=== PATIENT | male | born 1960 | race African-American/Black ===

== ENCOUNTER 2020-03-17 17:15 | Inpatient (IN) | payer MEDICARE ==
[2020-03-17 17:53] VITALS: BMI 22.0
[2020-03-17] MEDS ORDERED: Acetaminophen 325 MG TAB PO PRN (18:23)
[2020-03-17] MEDS: traMADol HCl 50 MG TAB PO PRN (19:44)
[2020-03-17] MEDS: Heparin 5,000 UNITS/ML VIAL SC SCH (20:32)
[2020-03-17] MEDS ORDERED: Heparin 5,000 UNITS/ML VIAL SC SCH (21:00)
[2020-03-18] MEDS: Acetaminophen 325 MG TAB PO PRN (02:09)
--- NOTE | 2020-03-18 05:06 | HP ---
CHIEF COMPLAINT: Weakness following hospitalization and surgery. HISTORY OF PRESENT ILLNESS: The patient is a 60-year-old Theo male who has a history of cirrhosis, alcohol abuse, chronic kidney disease. The patient was independent of his ADLs prior to these recent hospitalizations. The patient had developed problems with nausea, vomiting, abdominal distention, and weight loss. He had stopped drinking about 4 weeks prior to his recent hospitalization. He ended up hospitalized at [facility] from approximately 02/23 until 02/28/2020 with a possible bowel obstruction that was initially treated conservatively with nasogastric tube. This was removed and he wanted to go home. After he went home, his symptoms recurred and he subsequently was admitted at [facility] on 02/24/20 because of nausea, vomiting, and abdominal distention. He was seen in consultation by Dr. Benny Stroud, general surgeon, and review of his CT scan showed finding consistent with a small-bowel obstruction that was complete. The patient was admitted and underwent a laparoscopic lysis of adhesions, umbilical hernia repair without mesh, and placement of an internal jugular on the left side. Postop, the patient required ventilatory support and apparently had some trouble with some alcoholic withdrawal symptoms. He later developed sepsis symptoms and CT scan suggesting pneumatosis intestinalis of the transverse colon and ascites present. He was taken back to surgery by Dr. Stroud on 03/08/2020 and underwent exploratory laparotomy and appendectomy because of an indurated appendix. There was ascites fluid present that was evacuated and sent for culture. The bowel was all intact. The patient was seen by Infectious Disease and placed on antibiotics for peritonitis. His blood cultures had no growth. The ascites fluid grew an Enterobacter cloacae, Enterococcus faecalis. The patient required TPN support. The acute kidney injury resolved. He was later able to be extubated. His postop course was complicated by an ileus with gradual resolution. He was left extremely weak and was not able to walk. There was consideration of discharging him home to hospice, but he was too weak for his family even try to take care of him at home under hospice. The patient was wanting to try to see if he could get stronger before going home. The patient was discharged to [facility] on 03/17/2020 for purpose of physical therapy and occupational therapy. The patient was not receiving any TPN at this point nor IV antibiotics and was getting Tylenol for pain. He said he was just very weak and he wants to try to get stronger. When asked about hospice, he said he really does not think he is ready for this, wants to see how he does. PAST MEDICAL HISTORY: History of cirrhosis from alcohol. The patient previously had umbilical hernia repair with mesh in the past, left inguinal hernia repair, and laparoscopic cholecystectomy. He previously had viral studies for hepatitis A, B, and C, which have been normal. He has had paracentesis in the past, 3 times this year for the ascites. PRESENT MEDICATIONS: 1. Spironolactone 25 mg daily. 2. Acetaminophen 325 mg two every 8 hours as needed. 3. Tramadol 50 mg b.i.d. p.r.n. 4. Folic acid 1 mg daily. 5. Thiamine 100 mg daily. 6. Atenolol 25 mg daily. 7. Furosemide 40 mg daily. 8. Heparin 5000 units subcu b.i.d. 9. DuoNeb by nebulizer every 4 hours p.r.n. 10. Lactulose 20 g p.o. daily. 11. Omeprazole 20 mg daily. ALLERGIES: NO KNOWN ALLERGIES. REVIEW OF SYSTEMS: CONSTITUTIONAL: The patient said he is feeling better, but just very weak and has really not been able to get up and walk, but has been up in a chair some. The patient does not think he has had any fever. The patient recently has lost weight, but he does not know how much. EYE, EAR, NOSE, AND THROAT: No complaints. The patient is on no added salt diet. PULMONARY: No shortness of breath. The patient says he does smoke, but has not since he has been in the hospital. CARDIOVASCULAR: No chest pain. GASTROINTESTINAL: The patient has had no more nausea or vomiting. He is having several bowel movements a day. Today, upon his arrival, had a large yellowish liquid stool. The patient said his stomach does not hurt. GENITOURINARY: No complaints. DERMATOLOGIC: The patient said he has some bruised areas, little swelled areas from IV sites. NEUROPSYCHIATRIC: The patient just said he has generalized weakness. Nonfocal. ADLs: Prior to the hospitalization here and at [facility] and [facility], he had been independent in his ADLs. HABITS: Patient smokes less than a pack a day, but has stopped since his hospitalization. Alcohol, long history of alcoholism. Has been off the alcohol now for at least he said for about 4 weeks. SOCIAL HISTORY: The patient is , lives at [facility] with his . CODE STATUS: Patient is a DNR. Patient says he never again wants to be intubated nor have a nasogastric tube. PHYSICAL EXAMINATION: GENERAL: Shows an asthenic built 60-year-old Theo male who is lying in bed. He is alert and talkative and appears comfortable. Nurses are just cleaning him up from a large yellowish liquid bowel movement. VITAL SIGNS: Patient's weight is 158.8, heart rate 99, blood pressure 120/75, O2 saturation on room air 100%, temperature 98.8. HEENT: Head is normocephalic. Male pattern baldness. Ears, TMs are clear. Eyes, pupils are equal, round, and reactive. Sclerae look icteric. Nose normal. Mouth and throat, patient is edentulous. NECK: Carotids are equal and strong. No bruits. Thyroid not enlarged. LUNGS: Clear. HEART: Regular rate. No murmurs. ABDOMEN: Mildly protuberant. There is a midline vertical incision with phuong out and steri strips present. There is no drainage. Bowel sounds are present. There are shifting areas of dullness and some fluid waves that can be felt. Abdomen was nontender. EXTREMITIES: The patient has some bruising on the right forearm and slight pink discoloration. There is some swelling around the right elbow. Lower extremities have no edema. NEUROLOGIC: The patient is alert, knows he is in [place] and could tell me about his recent hospitalization. He has severe generalized weakness, but this is nonfocal. IMPRESSION: 1. Severe generalized weakness and deconditioning. a. Following hospitalization with bowel obstruction requiring surgery. b. Hospitalized at [facility] from 03/03 until 03/17. c. Required surgery on 03/03 with lysis of adhesion. d. On 03/08, take back exploratory laparotomy for sepsis from peritonitis, no bowel injury found. Peritoneal fluid culture was positive for Enterobacter cloacae and Enterococcus faecalis. 2. Alcoholism with alcoholic withdrawal. a. Cirrhosis. b. Postop complicated also by ileus, is resolving. 3. Alcoholism. a. According to patient, he has been off the alcohol for at least 4 weeks. 4. Alcoholic cirrhosis. 5. Malnutrition. 6. Chronic kidney disease. 7. DNR status. PLAN: The patient has been admitted to [facility]. He is wanting to try to get stronger with therapy. He is too weak to be cared for at home. He is a DNR. There was a discussion about him possibly going under hospice, but he says he is just not ready for this and wants to see if he can get stronger first. We will continue his routine medication and DVT prophylaxis. He is presently on no antibiotics. Code status is DNR. See orders. Job ID: [id number] MTDD
[2020-03-18 05:18] LABS: #Basophils 0.1 thou/uL (0.0-0.2); #Eosinphils 0.1 thou/uL (0.0-0.7); #Lymphocytes 1.5 thou/uL (1.20-3.40); #Monocytes 1.1 thou/uL (0.11-0.59); #Neutrophils 5.5 thou/uL (1.40-6.50); %Basophils 0.9 % (0.0-1.0); %Eosinophils 0.8 % (0.0-10.0); %Lymphocytes 17.8 % (21.0-51.0); %Monocytes 13.4 % (0.0-10.0); %Neutrophils 67.1 % (42.0-75.0); Hemoglobin 8.9 g/dL (14.0-18.0); Mean Corpuscular HGB CONC 31.5 g/dL (32.0-36.0); Mean Corpuscular Hemoglobin 29.2 pg (27.0-31.0); Mean Corpuscular Volume 92.9 fL (78.0-98.0); Mean Platelet Volume 10.4 fL (7.4-10.4); Platelet Count 145 thou/uL (130-400); RBC Distribution Width 16.5 % (11.5-14.5); Red Blood Cell (RBC) Count 3.03 mill/uL (4.70-6.10); White Blood Cell (WBC) Count 8.2 thou/uL (4.8-10.8)
[2020-03-18 05:25] LABS: Prothrombin Time 22.5 sec (12.0-14.7)
[2020-03-18 05:35] LABS: ALT (SGPT) 58 U/L (8-55); AST (SGOT) 143 U/L (5-34); Albumin 1.8 g/dL (3.4-4.8); Alkaline Phosphatase 197 U/L (40-110); Anion Gap 14 mmol/L (10-20); BUN (Urea Nitrogen) 12 mg/dL (8.4-25.7); Bilirubin, Total 4.2 mg/dL (0.2-1.2); Calc. Creatinine Clearance 127 mL/min (70-130); Calcium 7.5 mg/dL (7.8-10.44); Carbon Dioxide 19 mmol/L (23-31); Chloride 106 mmol/L (98-107); Estimated GFR-MDRD Greater than 90; Globulin 4.7 g/dL (2.4-3.5); Glucose 82 mg/dL (80-115); Potassium 3.1 mmol/L (3.5-5.1); Protein, Total 6.5 g/dL (5.8-8.1); Sodium 136 mmol/L (136-145)
[2020-03-18] MEDS: Folic Acid 1 MG TAB PO SCH (09:28)
[2020-03-18] MEDS: Thiamine 100 MG TAB PO SCH (09:28)
[2020-03-18] MEDS: Heparin 5,000 UNITS/ML VIAL SC SCH ×2 (09:28→21:14)
[2020-03-18] MEDS: Spironolactone 25 MG TAB PO SCH (09:28)
[2020-03-18] MEDS: Atenolol 25 MG TAB PO SCH (09:28)
[2020-03-18] MEDS: Furosemide 40 MG TAB PO SCH (09:29)
--- NOTE | 2020-03-18 10:23 | PRG ---
DATE OF SERVICE: 03/18/2020 SUBJECTIVE: The patient said he is doing good this morning. He slept good. He has already been around physical therapy, walked a little ways and worked with a little exercise machine for his arms. He is ready now for breakfast. He had multiple watery stools through the night. He still is on lactulose, which we will switch to p.r.n. OBJECTIVE: GENERAL: The patient is alert, looks very comfortable, he is talkative and answers questions appropriately. VITAL SIGNS: Show a temperature of 98.6, pulse 93, respirations 18, O2 saturation 100% on room air, blood pressure 109/72. LUNGS: Clear. HEART: Regular rate. ABDOMEN: Mildly protuberant. Bowel sounds present. Incision healing well with Steri-Strips present. EXTREMITIES: No edema. LABORATORY DATA: Shows an H and H of 8.9 and 28.2, white cell count 8200, 67% segs, 18% lymphocytes, platelet count of 145,000. PT 22.5, INR 2.0. Sodium 136, potassium 3.1, glucose 82, GFR greater than 90. AST 143, ALT 58, alkaline phos 197, bilirubin 4.2, albumin 1.8. ASSESSMENT: 1. Generalized weakness and deconditioning. a. Following hospitalization with bowel obstruction, requiring surgery. 2. Hospitalized at [facility] from 03/03 until 03/17 with a small-bowel obstruction. a. Required laparoscopic abdominal surgery on 03/03 with a lysis of adhesions. b. On 03/08, required a take back surgery for exploratory laparotomy for sepsis from peritonitis. No bowel injury found. Peritoneal fluid culture was positive for Enterobacter cloacae and Enterococcus faecalis that were treated with antibiotics. 3. Alcoholism with alcohol withdrawal. a. Remains off alcohol. b. Alcoholic withdrawal symptoms, resolved. 4. Alcoholic cirrhosis. 5. Malnutrition. 6. Code status, DNR. PLAN: The patient is doing better today. Does have hypokalemia for which he has been placed on potassium supplementation. He is anemic from his chronic illness and the recent surgeries, this will be followed. His liver studies are abnormal as a result of the cirrhosis. We will recheck the lab in a few days. Continue PT and OT. We will switch his lactulose to p.r.n. Job ID: [id number] [facility]
[2020-03-18] MEDS: Potassium Chloride 10 MEQ TAB PO SCH ×2 (10:37→17:07)
[2020-03-19] MEDS: Atenolol 25 MG TAB PO SCH (08:12)
[2020-03-19] MEDS: Furosemide 40 MG TAB PO SCH (08:12)
[2020-03-19] MEDS: Folic Acid 1 MG TAB PO SCH (08:12)
[2020-03-19] MEDS: Spironolactone 25 MG TAB PO SCH (08:12)
[2020-03-19] MEDS: Thiamine 100 MG TAB PO SCH (08:12)
[2020-03-19] MEDS: Pantoprazole 40 MG GRANULES PACKET PO SCH (08:13)
[2020-03-19] MEDS: Heparin 5,000 UNITS/ML VIAL SC SCH (08:14)
[2020-03-19] MEDS: traMADol HCl 50 MG TAB PO PRN (08:27)
--- NOTE | 2020-03-19 11:36 | PRG ---
DATE OF SERVICE: 03/19/2020 SUBJECTIVE: The patient said he is feeling good today. He says his bowels are not moving as much. He is presently in physical therapy and wheelchair, working the hand exercise device. His niece, Bernice is visiting with him. OBJECTIVE: GENERAL: The patient looks good this morning. He is sitting up in wheelchair, appears comfortable, in no distress. VITAL SIGNS: Show a temperature of 97.7, pulse 80, respirations 15, blood pressure 125/86, O2 saturation 95% on room air. His weight is 158. LUNGS: Clear. HEART: Regular rate. ABDOMEN: Soft, nontender. HEENT: Eyes are icteric. ASSESSMENT: 1. Generalized weakness and deconditioning. a. Following hospitalization with bowel obstruction requiring surgery x2. 2. Hospitalized at [facility] from 03/03/2020 until 03/17 with a small-bowel obstruction. a. Required laparoscopic abdominal surgery for lysis of adhesions on 03/03/2020. b. On 03/08, required a take back surgery for exploratory laparotomy for sepsis from peritonitis. No bowel injury found. Peritoneal fluid culture was positive for Enterobacter cloacae and Enterococcus faecalis that were treated. 3. Alcoholism with alcoholic withdrawal. a. Remains off the alcohol. b. Alcoholic withdrawal symptoms have all resolved. 4. Alcoholic cirrhosis. 5. Malnutrition. 6. Code status, DNR. PLAN: I have reviewed lab studies and the patient's liver studies are abnormal and his bilirubin is elevated to 4. I suspect there may be some alcoholic hepatitis. I anticipate this will improve with good nutrition and the vitamin supplementation. Right now, he looks better overall. We will continue good nutrition. He is on a pureed diet with nectar thickened liquids. He seems to be tolerating well. Speech Therapy will look in and help with further recommendations. He had previously had a swallow study while at [facility], which showed no rosalina aspiration, but mild penetration. Continue PT and OT. We will discontinue patient's heparin since his INR is already prolonged from his underlying liver disease. Job ID: [id number] MTDD
[2020-03-20] MEDS: Thiamine 100 MG TAB PO SCH (08:33)
[2020-03-20] MEDS: Furosemide 40 MG TAB PO SCH (08:34)
[2020-03-20] MEDS: Atenolol 25 MG TAB PO SCH (08:34)
[2020-03-20] MEDS: Spironolactone 25 MG TAB PO SCH (08:34)
[2020-03-20] MEDS: Folic Acid 1 MG TAB PO SCH (08:34)
[2020-03-20] MEDS: traMADol HCl 50 MG TAB PO PRN ×2 (08:37→20:51)
[2020-03-20] MEDS: Pantoprazole 40 MG GRANULES PACKET PO SCH (10:22)
[2020-03-21] MEDS: Furosemide 40 MG TAB PO SCH (08:31)
[2020-03-21] MEDS: Folic Acid 1 MG TAB PO SCH (08:31)
[2020-03-21] MEDS: Spironolactone 25 MG TAB PO SCH (08:31)
[2020-03-21] MEDS: Atenolol 25 MG TAB PO SCH (08:31)
[2020-03-21] MEDS: Pantoprazole 40 MG GRANULES PACKET PO SCH (08:31)
[2020-03-21] MEDS: traMADol HCl 50 MG TAB PO PRN ×2 (08:35→21:20)
[2020-03-21] MEDS: Thiamine 100 MG TAB PO SCH (08:45)
[2020-03-22 05:18] LABS: #Basophils 0.1 thou/uL (0.0-0.2); #Eosinphils 0.1 thou/uL (0.0-0.7); #Lymphocytes 1.8 thou/uL (1.20-3.40); #Monocytes 0.9 thou/uL (0.11-0.59); #Neutrophils 6.2 thou/uL (1.40-6.50); %Basophils 0.7 % (0.0-1.0); %Eosinophils 0.8 % (0.0-10.0); %Lymphocytes 19.9 % (21.0-51.0); %Monocytes 10.2 % (0.0-10.0); %Neutrophils 68.4 % (42.0-75.0); Hemoglobin 9.2 g/dL (14.0-18.0); Mean Corpuscular HGB CONC 31.4 g/dL (32.0-36.0); Mean Corpuscular Hemoglobin 29.3 pg (27.0-31.0); Mean Corpuscular Volume 93.4 fL (78.0-98.0); Mean Platelet Volume 9.3 fL (7.4-10.4); Platelet Count 259 thou/uL (130-400); RBC Distribution Width 16.2 % (11.5-14.5); Red Blood Cell (RBC) Count 3.13 mill/uL (4.70-6.10); White Blood Cell (WBC) Count 9.1 thou/uL (4.8-10.8)
[2020-03-22 05:26] LABS: INR-International Normal Ratio 1.9; Prothrombin Time 21.8 sec (12.0-14.7)
[2020-03-22 05:37] LABS: ALT (SGPT) 64 U/L (8-55); AST (SGOT) 122 U/L (5-34); Alkaline Phosphatase 253 U/L (40-110); Anion Gap 13 mmol/L (10-20); BUN (Urea Nitrogen) 7 mg/dL (8.4-25.7); Bilirubin, Total 3.8 mg/dL (0.2-1.2); Calc. Creatinine Clearance 125 mL/min (70-130); Calcium 7.4 mg/dL (7.8-10.44); Carbon Dioxide 20 mmol/L (23-31); Chloride 102 mmol/L (98-107); Estimated GFR-MDRD Greater than 90; Globulin 5.3 g/dL (2.4-3.5); Glucose 90 mg/dL (80-115); Potassium 3.3 mmol/L (3.5-5.1); Protein, Total 7.3 g/dL (5.8-8.1); Sodium 132 mmol/L (136-145)
[2020-03-22] MEDS: Furosemide 40 MG TAB PO SCH (07:54)
[2020-03-22] MEDS: Thiamine 100 MG TAB PO SCH (07:54)
[2020-03-22] MEDS: Pantoprazole 40 MG GRANULES PACKET PO SCH (07:54)
[2020-03-22] MEDS: Spironolactone 25 MG TAB PO SCH (07:54)
[2020-03-22] MEDS: Folic Acid 1 MG TAB PO SCH (07:55)
[2020-03-22] MEDS: Atenolol 25 MG TAB PO SCH (08:02)
[2020-03-22] MEDS: traMADol HCl 50 MG TAB PO PRN ×2 (10:00→22:01)
--- NOTE | 2020-03-22 11:31 | PRG ---
DATE OF SERVICE: 03/22/2020 SUBJECTIVE: The patient said he had a good night. He is feeling good today. He is eating good. His bowels are working. OBJECTIVE: GENERAL: The patient is sitting up in a chair. He is alert, talkative, appears comfortable, and in no distress. VITAL SIGNS: His temperature is 98.3, pulse 86, respirations 16, O2 saturation 100% on room air, blood pressure 99/65. LUNGS: Clear. HEART: Regular rate. ABDOMEN: Incision healing well on the abdomen. EXTREMITIES: No edema. LABORATORY DATA: Shows an H and H of 9.2 and 29.2, white cell count 9100 with 68% segs, 20% lymphocytes, and platelet count of 259,000. His PT/INR is 21.8 and 1.9. Sodium 132, potassium 3.3, BUN 7, creatinine 0.63, GFR greater than 90. His alkaline phosphatase is 253, total bilirubin has dropped from 4.2 to 3.8. His AST has dropped from 143 to 122, ALT stable at 64, albumin is up to 2.0. ASSESSMENT: 1. Generalized weakness and deconditioning. a. Following hospitalization with bowel obstruction, requiring surgery x2. 2. Hospitalized at [facility] from 03/03/2020 until 03/17/2020 with a small-bowel obstruction. a. Required laparoscopic abdominal surgery for lysis of adhesions on 03/03/2020. b. On 03/08, required a take back surgery for exploratory laparotomy for sepsis from peritonitis. No bowel injury found. Peritoneal fluid positive for Enterobacter cloacae and Enterococcus faecalis and treated with antibiotics. 3. Alcoholism. a. History of alcoholic withdrawal during hospitalization at [facility]. b. Remains off alcohol. 4. Alcoholic cirrhosis and probable alcoholic hepatitis. a. Lab studies showed mild improvement. 5. Malnutrition. 6. Code status, DNR. PLAN: The patient looks better. We will continue present care. Continue PT and OT. Job ID: [id number] [facility]
[2020-03-23] MEDS: Atenolol 25 MG TAB PO SCH (07:56)
[2020-03-23] MEDS: Thiamine 100 MG TAB PO SCH (07:56)
[2020-03-23] MEDS: Furosemide 40 MG TAB PO SCH (07:56)
[2020-03-23] MEDS: Spironolactone 25 MG TAB PO SCH (07:56)
[2020-03-23] MEDS: Folic Acid 1 MG TAB PO SCH (07:56)
[2020-03-23] MEDS: Pantoprazole 40 MG GRANULES PACKET PO SCH (07:57)
--- NOTE | 2020-03-23 09:14 | PRG ---
DATE OF SERVICE: 03/23/2020 SUBJECTIVE: The patient is feeling better. His bowels were moving this morning. His appetite has been good. His strength is improving. He is doing better with his transfers and walking. OBJECTIVE: GENERAL: The patient is sitting on the bedside commode, alert, talkative, appears comfortable. VITAL SIGNS: Temperature 97.9, pulse 88, respirations 18, O2 saturation 100% on room air, blood pressure 106/71. LUNGS: Clear. HEART: Regular rate. EXTREMITIES: No edema. ASSESSMENT: 1. Generalized weakness and deconditioning. a. Following hospitalization with bowel obstruction requiring surgery x2. 2. Hospitalized at [facility] from 03/03 through 03/17 for small-bowel obstruction. a. Required laparoscopic abdominal surgery for lysis of adhesions on 03/03/20. b. On 03/08, required a take back surgery for exploratory laparotomy for sepsis from peritonitis. No bowel injury found. Peritoneal fluid grew Enterobacter cloacae and Enterococcus faecalis and treated with antibiotics. 3. Alcoholism. a. History of alcohol withdrawal during recent hospitalization at [facility]. b. Remains off alcohol. 4. Alcoholic cirrhosis and probable recent alcoholic hepatitis. a. Improving. 5. Malnutrition. a. Eating better and albumin gradually improving. 6. Code status: DNR. PLAN: Continue present care, continue PT and OT. The patient due to see Dr. Stroud, his general surgeon and follow up on 03/25. Job ID: [id number] MTDD
[2020-03-23] MEDS: traMADol HCl 50 MG TAB PO PRN (11:14)
[2020-03-23] MEDS: Acetaminophen 325 MG TAB PO PRN (19:52)
[2020-03-24] MEDS: traMADol HCl 50 MG TAB PO PRN ×2 (08:32→20:43)
[2020-03-24] MEDS: Atenolol 25 MG TAB PO SCH (08:33)
[2020-03-24] MEDS: Thiamine 100 MG TAB PO SCH (08:33)
[2020-03-24] MEDS: Furosemide 40 MG TAB PO SCH (08:33)
[2020-03-24] MEDS: Folic Acid 1 MG TAB PO SCH (08:33)
[2020-03-24] MEDS: Spironolactone 25 MG TAB PO SCH (08:33)
[2020-03-24] MEDS: Pantoprazole 40 MG GRANULES PACKET PO SCH (08:34)
[2020-03-24] MEDS ORDERED: Loratadine 10 MG TAB PO PRN (08:41)
--- NOTE | 2020-03-24 10:53 | PRG ---
DATE OF SERVICE: 03/24/2020 SUBJECTIVE: The patient said he is feeling good today. His appetite is good. He slept good last night. He has been working with Physical Therapy, has been walking up to 150 feet a couple of times a day with a rolling walker and minimum assistance. He is transferring better with minimum assistance. The nurse said the bottom half of his abdominal incision started having a little drainage. He has had no fever. No abdominal pain. OBJECTIVE: GENERAL: The patient is sitting up in a chair, having completed his breakfast. He is alert, appears very comfortable, in no distress. VITAL SIGNS: His temperature is 98.4, pulse 84, respirations 20, O2 saturation 100% on room air, blood pressure 119/78. LUNGS: Clear. HEART: Regular rate. ABDOMEN: Incision is healing well, but over the lower half, there is a spot where there is a moderate amount of greenish, yellowish, slightly brown drainage on the dressing. In the area, two of the Steri-Strips were removed and there seems to be one spot of the drainage. There is no tenderness over this area and incision still seems to be intact. ASSESSMENT: 1. Generalized weakness and deconditioning. a. Following hospitalization with bowel obstruction requiring surgery x2. b. Improved, walking up to 150 feet with a rolling walker and minimal assistance and transferring with minimum assistance as of 03/24. 2. Hospitalized at [facility] from 02/28 to 03/17 for small bowel obstruction. a. Required laparoscopic abdominal surgery for lysis of adhesion on 03/03/2020. b. On 03/08, required a take back surgery for exploratory laparotomy for sepsis from peritonitis. No bowel injury found. Peritoneal fluid grew Enterobacter cloacae and Enterococcus faecalis, treated with antibiotic. c. Has been doing very well, but then developed a small purulent drainage from the lower portion of the incision as of the evening of 03/23. 3. Alcoholism. a. History of alcohol withdrawal during recent hospitalization at [facility]. b. Remains off alcohol. 4. Alcoholic cirrhosis and probable recent alcoholic hepatitis. a. Improving. 5. Malnutrition. a. Eating better and albumin is gradually improving. 6. Code status, DNR. PLAN: The culture of the little drainage from the wound has been taken. This area may represent a small area of stitch abscess. The area will be cleaned daily. The patient is due to see his surgeon, Dr. Stroud tomorrow, who will check that incision. Continue PT and OT. Job ID: [id number] [facility]
[2020-03-24] MEDS: Acetaminophen 325 MG TAB PO PRN (18:54)
[2020-03-25] MEDS: Thiamine 100 MG TAB PO SCH (08:02)
[2020-03-25] MEDS: Folic Acid 1 MG TAB PO SCH (08:02)
[2020-03-25] MEDS: Furosemide 40 MG TAB PO SCH (08:02)
[2020-03-25] MEDS: Atenolol 25 MG TAB PO SCH (08:02)
[2020-03-25] MEDS: Spironolactone 25 MG TAB PO SCH (08:03)
[2020-03-25] MEDS: Pantoprazole 40 MG GRANULES PACKET PO SCH (08:03)
[2020-03-25] MEDS: traMADol HCl 50 MG TAB PO PRN ×2 (08:03→19:28)
--- NOTE | 2020-03-25 11:21 | PRG ---
DATE OF SERVICE: 03/25/2020 SUBJECTIVE: Patient said he is doing better. He feels better. He rested well last night, already been to therapy. OBJECTIVE: GENERAL: The patient is sitting up in a chair. He is alert, talkative, appears comfortable, in no distress. VITAL SIGNS: His temperature is 98, pulse 98, respirations 22, O2 saturation 97% on room air, blood pressure 114/77. LUNGS: Clear. HEART: Regular rate. ABDOMEN: Incision healing well other than the small area on the lower half of the incision with just a small amount of a brown, somewhat serous fluid, but this is less than yesterday and the wound looks much globe cleaner. The culture from the wound is pending. The Gram stain shows rare WBC and no organism seen. ASSESSMENT: 1. Generalized weakness and deconditioning. a. Following hospitalization for bowel obstruction requiring surgery x2. b. Improving. Walking up to 150 feet with a rolling walker and minimal assistance. Transferring with minimal assistance as of 03/25. 2. Hospitalized at [facility] from 02/28 to 03/17 for small bowel obstruction. a. Required laparoscopic abdominal surgery for lysis of adhesions on 03/03/2020. b. On 03/08, required a take back surgery for exploratory laparotomy for sepsis from peritonitis. No bowel injury found. Peritoneal fluid grew Enterobacter cloacae and Enterococcus faecalis, treated with antibiotics. c. Has been doing very well. Developed just this small probable little stitch abscess in the lower incision that looks better today as of 03/25. 3. Alcoholism. a. History of alcoholic withdrawal during recent hospitalization. b. Remains off alcohol. 4. Alcoholic cirrhosis and probable recent alcoholic hepatitis, improving. 5. Malnutrition. a. Eating better, albumin gradually improving. 6. Code status, DNR. PLAN: Continue present care. Continue keeping the wound clean. Continue PT and OT. The patient is scheduled to see his surgeon, Dr. Willy Stroud, this morning. Job ID: [id number] [facility]
[2020-03-25] MEDS: Acetaminophen 325 MG TAB PO PRN (19:29)
[2020-03-26] MEDS: Thiamine 100 MG TAB PO SCH (08:06)
[2020-03-26] MEDS: Atenolol 25 MG TAB PO SCH (08:06)
[2020-03-26] MEDS: Folic Acid 1 MG TAB PO SCH (08:06)
[2020-03-26] MEDS: Spironolactone 25 MG TAB PO SCH (08:06)
[2020-03-26] MEDS: Furosemide 40 MG TAB PO SCH (08:07)
[2020-03-26] MEDS: Pantoprazole 40 MG GRANULES PACKET PO SCH (08:07)
[2020-03-26] MEDS: traMADol HCl 50 MG TAB PO PRN ×2 (08:12→19:28)
--- NOTE | 2020-03-26 13:29 | PRG ---
DATE OF SERVICE: 03/26/2020 SUBJECTIVE: The patient said he is feeling good today. Yesterday, his family took him to see Dr. Stroud, his surgeon. He was very pleased with his progress, found that he had a small little stitch abscess and there was a small opening there in the incision that he packed with Nu Gauze and asked that this be done daily. The patient is making good progress with physical therapy. He is walking better and stronger with his walker and getting up better. He is making excellent progress. OBJECTIVE: GENERAL: The patient is sitting up in a wheelchair. He is alert and talkative, looks very comfortable. VITAL SIGNS: Temperature of 98.5, pulse rate 82, respirations are 18, O2 saturation 100% on room air, and blood pressure 114/73. LUNGS: Clear. HEART: Regular rate. ABDOMEN: The incision healing in the lower half. There is a small less than 7 mm diameter opening that has been packed with Nu Gauze. There is no surrounding redness. No odor. His weight is stable at 158. His eyes appear less jaundiced. ASSESSMENT: 1. Generalized weakness and deconditioning. a. Following the hospitalization for bowel obstruction requiring surgery x2. b. Improving, walking up to 150 feet with a rolling walker and minimal assistance. Transferring better with minimal assistance as of 03/26/2020. 2. Hospitalized at [facility] from 02/28 to 03/17 for small bowel obstruction. a. Required laparoscopic abdominal surgery for lysis of adhesions on 03/03/2020. b. On 03/08, required a take back surgery for exploratory laparotomy for sepsis from peritonitis. No bowel injury found. Peritoneal fluid grew Enterobacter cloacae and Enterococcus faecalis, treated with antibiotics. c. He has been doing very well. Developed a small little stitch abscess. That is what Dr. Stroud looked at on 03/25/2020, and recommended just keeping clean and packing with Nu Gauze. 3. Alcoholism. a. History of alcoholic withdrawal during recent hospitalization. b. Remains off alcohol. 4. Alcoholic cirrhosis and probable recent alcoholic hepatitis, improving. 5. Malnutrition. a. Eating better. Albumin gradually improving. b. Code status DNR. PLAN: The patient is making further progress. His strength is improving. He is still needing help with his ADLs, but doing better with these. We will anticipate at least another week here for continuation of PT and OT. Wound will be kept clean and dressed and packed daily with Nu Gauze. Anticipate this healing by secondary intention. We will recheck lab on 03/29/2020. Job ID: [id number] [facility]
[2020-03-26] MEDS: Acetaminophen 325 MG TAB PO PRN ×2 (14:29→19:28)
[2020-03-27] MEDS: Pantoprazole 40 MG GRANULES PACKET PO SCH (08:27)
[2020-03-27] MEDS: Atenolol 25 MG TAB PO SCH (08:27)
[2020-03-27] MEDS: Acetaminophen 325 MG TAB PO PRN ×2 (08:27→19:39)
[2020-03-27] MEDS: Spironolactone 25 MG TAB PO SCH (08:28)
[2020-03-27] MEDS: Folic Acid 1 MG TAB PO SCH (08:28)
[2020-03-27] MEDS: Thiamine 100 MG TAB PO SCH (08:28)
[2020-03-27] MEDS: Furosemide 40 MG TAB PO SCH (08:28)
[2020-03-27] MEDS: traMADol HCl 50 MG TAB PO PRN (19:39)
[2020-03-28] MEDS: Furosemide 40 MG TAB PO SCH (08:20)
[2020-03-28] MEDS: Folic Acid 1 MG TAB PO SCH (08:20)
[2020-03-28] MEDS: Atenolol 25 MG TAB PO SCH (08:20)
[2020-03-28] MEDS: Thiamine 100 MG TAB PO SCH (08:20)
[2020-03-28] MEDS: Pantoprazole 40 MG GRANULES PACKET PO SCH (08:20)
[2020-03-28] MEDS: Spironolactone 25 MG TAB PO SCH (08:20)
[2020-03-28] MEDS: traMADol HCl 50 MG TAB PO PRN ×2 (08:25→19:37)
[2020-03-28] MEDS: Acetaminophen 325 MG TAB PO PRN ×2 (16:14→22:24)
[2020-03-29 05:44] LABS: INR-International Normal Ratio 1.4; Prothrombin Time 17.9 sec (12.0-14.7)
[2020-03-29 05:52] LABS: #Basophils 0.1 thou/uL (0.0-0.2); #Eosinphils 0.1 thou/uL (0.0-0.7); #Lymphocytes 2.8 thou/uL (1.20-3.40); #Monocytes 1.4 thou/uL (0.11-0.59); #Neutrophils 5.2 thou/uL (1.40-6.50); %Basophils 0.8 % (0.0-1.0); %Eosinophils 1.2 % (0.0-10.0); %Lymphocytes 29.4 % (21.0-51.0); %Monocytes 14.2 % (0.0-10.0); %Neutrophils 54.4 % (42.0-75.0); Hemoglobin 10.2 g/dL (14.0-18.0); Mean Corpuscular HGB CONC 32.2 g/dL (32.0-36.0); Mean Corpuscular Hemoglobin 29.5 pg (27.0-31.0); Mean Corpuscular Volume 91.4 fL (78.0-98.0); Mean Platelet Volume 7.6 fL (7.4-10.4); Platelet Count 362 thou/uL (130-400); RBC Distribution Width 15.3 % (11.5-14.5); Red Blood Cell (RBC) Count 3.46 mill/uL (4.70-6.10); White Blood Cell (WBC) Count 9.6 thou/uL (4.8-10.8)
[2020-03-29 05:55] LABS: ALT (SGPT) 42 U/L (8-55); AST (SGOT) 64 U/L (5-34); Albumin 2.7 g/dL (3.4-4.8); Alkaline Phosphatase 243 U/L (40-110); Anion Gap 15 mmol/L (10-20); BUN (Urea Nitrogen) 8 mg/dL (8.4-25.7); Calc. Creatinine Clearance 116 mL/min (70-130); Calcium 8.5 mg/dL (7.8-10.44); Carbon Dioxide 24 mmol/L (23-31); Chloride 99 mmol/L (98-107); Estimated GFR-MDRD Greater than 90; Globulin 6.2 g/dL (2.4-3.5); Glucose 101 mg/dL (80-115); Potassium 3.5 mmol/L (3.5-5.1); Protein, Total 8.9 g/dL (5.8-8.1); Sodium 134 mmol/L (136-145)
[2020-03-29] MEDS: traMADol HCl 50 MG TAB PO PRN ×2 (07:57→22:42)
[2020-03-29] MEDS: Thiamine 100 MG TAB PO SCH (07:58)
[2020-03-29] MEDS: Acetaminophen 325 MG TAB PO PRN ×2 (07:58→22:42)
[2020-03-29] MEDS: Furosemide 40 MG TAB PO SCH (07:58)
[2020-03-29] MEDS: Spironolactone 25 MG TAB PO SCH (07:58)
[2020-03-29] MEDS: Atenolol 25 MG TAB PO SCH (07:58)
[2020-03-29] MEDS: Folic Acid 1 MG TAB PO SCH (07:58)
[2020-03-29] MEDS: Pantoprazole 40 MG GRANULES PACKET PO SCH (07:58)
--- NOTE | 2020-03-29 09:52 | PRG ---
DATE OF SERVICE: 03/29/2020 SUBJECTIVE: The patient said he has been doing good. He is sleeping good. His appetite has been good. He is getting up and down easier. He is walking easier and more securely. The nurses report that the small wound that is being packed with Nu Gauze on the lower incision is doing very well. OBJECTIVE: GENERAL: The patient is sitting up in his bedside chair, eating breakfast. He is alert, talkative, appears comfortable, in no distress. VITAL SIGNS: His temperature is 98, pulse 76, respirations 18, O2 saturation 98% on room air, blood pressure 116/78. His weight is stable at 158. LUNGS: Clear. HEART: Regular rate. ABDOMEN: Incision healing well. There is a small area that is packed with Nu Gauze. It is clean on the lower half of the incision. LABORATORY DATA: H and H are 10.2 and 31.6 up from admission hemoglobin of 8.9, white cell count 9600 with 54% segs, 29% lymphocytes, and a platelet count of 362,000. His INR has dropped to 1.4. His sodium 134, potassium up to 3.5 from a low of 3.1, BUN 8, creatinine 0.68, GFR greater than 90, glucose 101. His total bilirubin has dropped to 2.0, AST has dropped to 64, ALT is 42 and normal, alkaline phosphatase stable at 243. Albumin up to 2.7. The culture from the incision grew an Enterobacter cloacae sensitive to Septra. ASSESSMENT: 1. Generalized weakness and deconditioning. a. Following hospitalization for bowel obstruction requiring surgery x2. b. Improving, walking up to 150 feet with a rolling walker and minimal assistance. Transferring better with minimal assistance as of 03/29. 2. Hospitalized at [facility] from 02/28 until 03/17 for small-bowel obstruction. a. Required laparoscopic abdominal surgery for lysis of adhesions on 03/03/2020. b. On 03/08, required a take back surgery for exploratory laparotomy for sepsis from peritonitis. No bowel injury found. Peritoneal fluid, Enterobacter cloacae and Enterococcus faecalis, treated with antibiotics. c. Has been doing very well. Developed a small wound infection that is stable. Being handled by just a Nu Gauze dressing and improving as of 03/29. 3. Alcoholism. a. History of alcoholic withdrawal during recent hospitalization. b. Remains off alcohol. 4. Alcoholic cirrhosis and probable recent alcoholic hepatitis, improving as of 03/29. 5. Malnutrition. a. Eating better. Albumin up to 2.7. 6. Code status, DNR. PLAN: The patient continues to improve. We will continue present care. Continue PT and OT. Job ID: [id number] MTDD
[2020-03-30] MEDS: Spironolactone 25 MG TAB PO SCH (08:03)
[2020-03-30] MEDS: Atenolol 25 MG TAB PO SCH (08:03)
[2020-03-30] MEDS: Furosemide 40 MG TAB PO SCH (08:03)
[2020-03-30] MEDS: Thiamine 100 MG TAB PO SCH (08:04)
[2020-03-30] MEDS: Folic Acid 1 MG TAB PO SCH (08:04)
[2020-03-30] MEDS: traMADol HCl 50 MG TAB PO PRN (12:07)
[2020-03-30] MEDS: Acetaminophen 325 MG TAB PO PRN ×2 (12:07→17:51)
[2020-03-31] MEDS: traMADol HCl 50 MG TAB PO PRN ×2 (08:03→19:50)
[2020-03-31] MEDS: Folic Acid 1 MG TAB PO SCH (08:04)
[2020-03-31] MEDS: Atenolol 25 MG TAB PO SCH (08:04)
[2020-03-31] MEDS: Thiamine 100 MG TAB PO SCH (08:04)
[2020-03-31] MEDS: Furosemide 40 MG TAB PO SCH (08:04)
[2020-03-31] MEDS: Spironolactone 25 MG TAB PO SCH (08:04)
--- NOTE | 2020-03-31 11:58 | PRG ---
DATE OF SERVICE: 03/31/2020 SUBJECTIVE: The patient said he is doing good. He has excellent appetite. He is making excellent progress with physical therapy. He is walking further. His transfers are improved and overall strength improving. The wound on the incision is healing. OBJECTIVE: GENERAL: The patient is sitting up, eating his breakfast. He is alert, talkative, appears in no distress. VITAL SIGNS: Pulse 86, respirations 16, O2 saturation 96% on room air, his temperature was 97, and blood pressure 121/82. LUNGS: Clear. HEART: Regular rate. Incision healing. Open wound is small and continues to get smaller, it is so shallow now could no longer be packed. EXTREMITIES: No edema. ASSESSMENT: 1. Generalized weakness and deconditioning. a. Following hospitalization for bowel obstruction requiring surgery x2. b. Improving. Walking at least to 150 feet with a rolling walker and minimal assistance. Transferring with minimal assistance as of 03/31/2020. 2. Hospitalized at [facility] from 02/28 until 03/17 for a small-bowel obstruction. a. Required laparoscopic abdominal surgery for lysis of adhesions on 03/03/2020. b. On 03/08, required a take back surgery for exploratory laparotomy for sepsis from peritonitis. No bowel injury found. Peritoneal fluid grew Enterobacter cloacae and Enterococcus faecalis, treated with antibiotics. c. He has been doing very well. Developed a small little stitch abscess, that is healing by secondary intention as of 03/31. 3. Alcoholism. a. History of alcoholic withdrawal during recent hospitalization. b. Remains off alcohol. 4. Alcoholic cirrhosis and probable recent alcoholic hepatitis. a. Alcoholic hepatitis, resolving. 5. Malnutrition, improved. 6. Code status, DNR. PLAN: The patient is making excellent progress. We will continue present care. Continue PT and OT. We are planning on discharge on 04/02/2020. Job ID: [id number] MTDD
[2020-03-31] MEDS: Acetaminophen 325 MG TAB PO PRN (19:54)
[2020-04-01] MEDS: traMADol HCl 50 MG TAB PO PRN ×2 (08:18→20:29)
[2020-04-01] MEDS: Atenolol 25 MG TAB PO SCH (08:18)
[2020-04-01] MEDS: Folic Acid 1 MG TAB PO SCH (08:18)
[2020-04-01] MEDS: Furosemide 40 MG TAB PO SCH (08:18)
[2020-04-01] MEDS: Spironolactone 25 MG TAB PO SCH (08:18)
[2020-04-01] MEDS: Thiamine 100 MG TAB PO SCH (08:18)
--- NOTE | 2020-04-01 13:02 | PRG ---
DATE OF SERVICE: 04/01/2020 SUBJECTIVE: The patient said he is feeling good today. He is eating good. Therapist said he is doing excellent with his walking, using a walker to assist. He is transferring without any assistance. Nurses report that the wound on the incision is gradually improving. OBJECTIVE: GENERAL: The patient is sitting up in a chair with physical therapy. He is alert, talkative, appears comfortable, in no distress. VITAL SIGNS: Temperature 98.9, pulse 82, respirations 18, O2 saturation 100% on room air, and blood pressure 115/75. LUNGS: Clear. HEART: Regular rate. EXTREMITIES: No edema. ASSESSMENT: 1. Generalized weakness and deconditioning. a. Following hospitalization for bowel obstruction, requiring surgery x2. b. Improving, walking at least 150 feet with a rolling walker, no assistance. Transferring with no assistance as of 04/01. 2. Hospitalized at [facility] from 02/28 until 03/17 for small bowel obstruction. a. Required laparoscopic abdominal surgery for lysis of adhesions on 03/03/2020. b. On 03/08, required a take-back surgery for exploratory laparotomy for sepsis from peritonitis. No bowel injury found. Peritoneal fluid grew Enterobacter cloacae and Enterococcus faecalis, treated with antibiotics. c. Did very well, developed small stitch abscess in the incision that is healing by secondary intention as of 04/01. 3. Alcoholism. a. History of alcohol withdrawal during recent hospitalization. b. Doing very well. Remains off alcohol and committed to remaining off. 4. Alcoholic cirrhosis and probable recent alcoholic hepatitis. a. Alcoholic hepatitis, resolving. 5. Malnutrition, improving. 6. Code status, DNR. PLAN: Continue present care. Continue PT and OT. Anticipate discharge tomorrow. Job ID: [id number] [facility]
[2020-04-01] MEDS: Acetaminophen 325 MG TAB PO PRN ×2 (15:53→23:45)
[2020-04-02] MEDS: Atenolol 25 MG TAB PO SCH (08:38)
[2020-04-02] MEDS: Thiamine 100 MG TAB PO SCH (08:38)
[2020-04-02] MEDS: Furosemide 40 MG TAB PO SCH (08:38)
[2020-04-02] MEDS: Folic Acid 1 MG TAB PO SCH (08:38)
[2020-04-02] MEDS: Spironolactone 25 MG TAB PO SCH (08:38)
[2020-04-02 08:42] VITALS: BP 123/88; TEMP 97.5
[2020-04-02] MEDS: traMADol HCl 50 MG TAB PO PRN (08:43)
[2020-04-02] MEDS: Acetaminophen 325 MG TAB PO PRN (08:44)
--- NOTE | 2020-04-05 07:33 | DIS ---
DATE OF ADMISSION: 03/17/2020 DATE OF DISCHARGE: 04/02/2020 FINAL DIAGNOSES: 1. Generalized weakness and deconditioning. a. Following hospitalization for bowel obstruction requiring surgery x2. b. Improving walking at least 150 feet with a rolling walker and no assistance. Transferring with no assistance as of 04/02. 2. Hospitalized at [facility] from 02/28 until 03/17 for small bowel obstruction. a. Required laparoscopic abdominal surgery for lysis of adhesions on 03/03/20. b. On 03/08, required a take back surgery for exploratory laparotomy for sepsis from peritonitis. No bowel injury found. Peritoneal fluid grew Enterobacter cloacae and Enterococcus faecalis, treated with antibiotics. c. Doing very well with normal bowel function. Incision healed except for small stitch abscess that is almost totally healed by 04/02. 3. Alcoholism. a. History of alcoholic withdrawal during recent hospitalization. b. Doing very well. Remains off alcohol, committed to remaining off. 4. Alcoholic cirrhosis. a. Complicated by probable recent alcoholic hepatitis. b. Alcoholic hepatitis, resolving. 5. Malnutrition, improving. 6. Osteoarthritis of the left knee. 7. Code status is DNR. HOSPITAL COURSE: The patient is a 60-year-old Theo male who has a history of alcoholism and history of cirrhosis. The patient had been hospitalized at [facility] for a small-bowel obstruction that was tried to be managed conservatively. The patient removed his nasogastric tube and then requested to go home. His symptoms recurred and he again developed nausea, vomiting, and abdominal distention. He presented at [facility] Emergency Room on 02/24/2020 with these symptoms, was found to have a complete small-bowel obstruction. He was admitted at [facility] on 03/03 and remained there until 03/17/20. He required laparoscopic surgery for lysis of adhesions on 03/[address] Benny Stroud, general surgeon, for relief of the small-bowel obstruction. He apparently had some alcoholic withdrawal symptoms that gradually resolved. He developed a sepsis picture and was taken back to surgery on 03/08 for a relook and underwent an exploratory laparotomy. He was found to have no injury to the bowel. The peritoneal fluid was positive for Enterobacter cloacae and Enterococcus faecalis, treated with IV antibiotics. His condition was one of continual improvement, but he was left extremely weak. Initially, he was too weak to be taken care of in the home. Initially, there was consideration of discharge to hospice, but he was not wanting to do this. He was transferred to [facility] on 03/17/20 for extended care for purpose of physical therapy and occupational therapy. During his hospital stay, patient made excellent progress. Eventually, he was able to walk as far as 200 feet several times a day with his rolling walker and supervision and was transferring with just moderate assistance. His appetite markedly improved and he was eating very well. His weight remained stable at 158. His incision healed except for a small area that opened and had a little drainage from a probable stitch abscess. He had seen Dr. Benny Stroud, his general surgeon, in followup who just thought he was doing excellent and just recommended keeping the wound clean and just applying a Nu Gauze packing. This wound gradually became superficial and would not allow any more packing and was healing. The patient's overall condition was one of continual improvement. He was committed to remain off the alcohol because he was feeling so much better than he had in a long time. LABORATORY DATA: Lab work on 03/29 showed a hemoglobin of 10.2 and 31.6 with a white cell count of 9600, 54% segs, 29% lymphocytes, and a platelet count of 362. His INR on admission was 2.0, by 03/29, it had dropped to 1.4. On admission, his potassium was 3.1 but by 03/29, this was up to 3.5 and sodium 134. His bilirubin on admission was 4.2 and by 03/29, this had dropped to 2. AST had dropped from 143 to 64, ALT dropped from 58 to 42, alkaline phosphatase had gone up to a high of 253 and dropped to 243, albumin on admission 1.8 and increased to 2.7. The patient's condition continued to improve. He had been placed on thiamine and folic acid and potassium supplementation and was on furosemide and spironolactone for the cirrhosis and small amount of ascites. He was taking tramadol twice a day if needed for his pain and pain in the left knee from his arthritic knee. By 04/02, his condition had markedly improved. He was very excited to be going home. He was eating well and condition stable. Home health will follow up with him and arrange for in-home PT and OT and he is due to see his surgeon, Dr. Stroud, on 04/08 and I will see him in followup in 2 weeks. DISCHARGE INSTRUCTIONS: Diet: Regular diet. No alcohol. Activities: Ambulate with the use of a walker. Home health with [facility], will see him and arrange for in-home PT and OT. They will draw a CBC, PT/INR, and CMP prior to his return visit with me in 2 weeks. The tiny open area on the incision will be kept clean with soap and water and a small overlying dressing. MEDICATIONS: 1. Acetaminophen 325 mg 2 every 6 hours as needed. 2. Tenormin 25 mg daily. 3. Folic acid 1 mg daily. 4. Furosemide 40 mg daily. 5. Lactulose 20 g daily as needed. 6. Pantoprazole 40 mg daily. 7. Potassium chloride extended care 10 mEq b.i.d. 8. Spironolactone 25 mg daily. 9. Thiamine 100 mg daily. 10. Tramadol 50 mg b.i.d. as needed. FOLLOWUP: The patient to see Dr. Stroud on 04/08. The patient will see myself in 2 weeks with CBC, CMP, and PT/INR prior to the visit. CODE STATUS: DNR. Job ID: [id number] MTDD
--- NOTE | 2020-04-05 09:52 | PQF ---
CLINICAL DOCUMENTATION CLARIFICATION FORM: Dear : Wisam Ortiz MD Date / Time: 04/05/2020 Please exercise your independent, professional judgment in responding to the clarification form. Clinical indicators are provided on the bottom of this form for your review Please check appropriate box(es): [ x ] Protein Calorie Malnutrition: [ ] Mild [ x ] Moderate [ ] Severe [ ] Other Malnutrition (please specify) [ ] Underweight without malnutrition [ ] Cachexia [ ] Other diagnosis (Please specify if any) [ ] Unable to determine In addition, please specify: Present on Admission (POA): [ x ] Yes [ ] No [ ] Unable to determine Physician Signature: Date/Time: For continuity of documentation, please document condition throughout progress notes and discharge summary. Thank You. To be completed by CDI/Coding staff for physician review: Present Clinical Indicators - Signs / Symptoms / Labs Results and Location in Medical Record [ x ] Malnutrition, Failure to Thrive, Cachexia Discharge summary on 04/02 [x] BMI of 18.3 Physician care trainer Two or More of the Following ASPEN Criteria: [ ] Unintentional Insufficient Energy Intake [ x ] Weight Loss Recently weight loss- H&P on 03/18 [ ] Loss of Muscle Mass [ ] Loss of Subcutaneous Fat [ x ] Albumin 1.8 L, Ca-7.5 L Laboratory on 03/18 [ x ] He is anemic from his chronic illness and recent surgeries Progress notes on 03/18 Present Risk Factors Results and Location in Medical Record [ ] Change in appetite / nausea / vomiting / diarrhea [ ] Inability to consume adequate caloric intake [ x ] Chronic illness cancer, cirrhosis Cirrhosis H&P on 03/18 [ ] Medication [ ] PEG tube [ ] Short gut syndrome Present Treatments Results and Location in Medical Record [ x ] This will improve with good nutrition and the vitamin supplementation Progress notes on 03/19 [ x ] Malnutrition -Eating better and albumin is improving Progress notes on 03/24 [ ] TPN / tube feedings [ ] Assistance with feeding [ ] Appetite stimulant - medication CDS/Streetcar Dispatcher Signature: AAS Phone #: Date/Time: 04/05/2020 Moderate Malnutrition (in acute illness) ? Energy Intake: <75% of estimated energy requirement for > 7 days ? Weight Loss: 1-2%/1 week; 5%/ 1 month; 7.5%/3 months ? Other: mild body fat loss; mild muscle mass loss; mild fluid accumulation; Severe Malnutrition (in acute illness) ? Energy Intake: ? 50% of estimated energy requirement for ? 5 days ? Weight Loss: >2%/1 week; >5%/1 month; >7.5%/3 months ? Other: moderate body fat loss; moderate muscle mass loss; moderate- severe fluid accumulation; measurably reduced mushroom press operator strength Moderate Malnutrition (in chronic illness) ? Energy Intake: <75% of estimated energy requirement for ?1 month ? Weight Loss: 5%/1 month; 7.5%/3 months; 10%/6 months; 20%/1 year ? Other: mild body fat loss; mild muscle mass loss; mild fluid accumulation Severe Malnutrition (in chronic illness) ? Energy Intake: ?75% of estimated energy requirement for ?1 month ? Weight Loss: >5%/1 month; >7.5%/3 months; >10%/6 months; >20%/1 year ? Other: severe body fat loss; severe muscle mass loss; severe fluid accumulation; measurably reduced mushroom press operator strength This is a permanent part of the Medical Record MTDD
== END 2020-04-02 12:30 | disposition home health service (06) | DRG 948 ==
LOC: MADMS 17:15
PROVIDERS: ADMIT Family Medicine; ATTEND Family Medicine
DX: R53.1 Weakness (principal); F10.239 Alcohol dependence with withdrawal, unspecified; Z68.1 Body mass index [BMI] 19.9 or less, adult; E44.0 Moderate protein-calorie malnutrition; Z66 Do not resuscitate; N18.9 Chronic kidney disease, unspecified; K70.30 Alcoholic cirrhosis of liver without ascites; E87.6 Hypokalemia; D64.9 Anemia, unspecified; Z90.49 Acquired absence of other specified parts of digestive tract; K70.10 Alcoholic hepatitis without ascites
CPT/HCPCS: 36415; 80053; 85025; 85610; 87070; 87077; 87186; 87205; J1644

== ENCOUNTER 2023-11-30 13:01 | Emergency (ER) | payer MEDICARE, OTHER ==
[2023-11-30] MEDS ORDERED: cefTRIAXone (ROCEPHIN) 1 GM VIAL ONE (13:28)
[2023-11-30] MEDS ORDERED: Lidocaine 1% PF 5 ML VIAL ONE (13:28)
[2023-11-30] MEDS ORDERED: Bacitracin 1 PK ONE (13:31)
== END 2023-11-30 13:49 | disposition home or self-care (01) ==
LOC: MADERS 13:01
DX: S90.421A Blister (nonthermal), right great toe, initial encounter (principal); S50.311A Abrasion of right elbow, initial encounter; L84 Corns and callosities; I10 Essential (primary) hypertension; F17.210 Nicotine dependence, cigarettes, uncomplicated; X50.9XXA Other and unspecified overexertion or strenuous movements or postures, initial encounter
CPT/HCPCS: 96372; 99283; J0696

== ENCOUNTER 2024-05-28 12:23 | Emergency (ER) | payer OTHER | END 2024-05-28 12:47 | disposition home or self-care (01) | LOC: MADERS 12:23 | DX: L03.113 Cellulitis of right upper limb (principal); L02.413 Cutaneous abscess of right upper limb; I10 Essential (primary) hypertension; F17.210 Nicotine dependence, cigarettes, uncomplicated | CPT/HCPCS: 87070; 87077; 87186; 87205; 99283 ==

== ENCOUNTER 2024-07-23 13:08 | Emergency (ER) | payer OTHER | END 2024-07-23 13:50 | disposition home or self-care (01) | LOC: MADERS 13:08 | DX: S91.101A Unspecified open wound of right great toe without damage to nail, initial encounter (principal); R19.7 Diarrhea, unspecified; I10 Essential (primary) hypertension; F17.210 Nicotine dependence, cigarettes, uncomplicated; X58.XXXA Exposure to other specified factors, initial encounter | CPT/HCPCS: 99406 ==

== ENCOUNTER 2024-11-08 11:26 | Emergency (ER) | payer OTHER ==
[2024-11-08 12:13] LABS: Hematocrit 25.8 % (42.0-52.0); Hemoglobin 7.5 g/dL (14.0-18.0); Mean Corpuscular HGB CONC 29.3 g/dL (32.0-36.0); Mean Corpuscular Hemoglobin 30.5 pg (27.0-31.0); Mean Corpuscular Volume 104.3 fl (78.0-98.0); Platelet Count 93 10x3/uL (130-400); RBC Distribution Width 16.9 % (11.5-14.5); Red Blood Cell (RBC) Count 2.47 mill/uL (4.70-6.10)
[2024-11-08 12:22] LABS: ALT (SGPT) 33 U/L (Less than 45); AST (SGOT) 83 U/L (11-34); Albumin 2.2 g/dL (3.1-4.5); Alkaline Phosphatase 117 U/L (40-110); Anion Gap 11 mmol/L (10-20); BUN (Urea Nitrogen) 30 mg/dL (8.4-25.7); Bilirubin, Total 0.7 mg/dL (0.3-1.2); Calc. Creatinine Clearance 0 mL/min (70-130); Calcium 7.7 mg/dL (7.8-10.44); Carbon Dioxide 16 mmol/L (23-31); Chloride 110 mmol/L (98-107); Estimated GFR 28; Globulin 7.3 g/dL (2.4-3.5); Glucose 109 mg/dL (80-115); Potassium 3.6 mmol/L (3.5-5.1); Protein, Total 9.5 g/dL (5.8-8.1); Sodium 133 mmol/L (136-145)
[2024-11-08 12:22] LABS: Bilirubin Negative (Negative); Blood, Urine Large (Negative); Clarity Cloudy (Clear); Glucose, Urine (Dipstick) Negative (Negative); Ketone, Urine Negative (Negative); Leukocyte Small (Negative); Nitrite Negative (Negative); Protein, Urine (Dipstick) 100 mg/dL (Neg-Trace); Specific Gravity, Urine 1.015 (1.005-1.030); Urobilinogen 0.2 mg/dL (Less than 2); pH, Urine 5.5 (5.0-9.0)
[2024-11-08 12:28] LABS: Troponin I 0.026 ng/mL (< 0.028)
[2024-11-08 12:30] LABS: Bacteria/HPF 1+ HPF (None Seen); CAUTI Indications for Culture Dysuria,urgency,freq; RBC/HPF Greater than 50 HPF (0-3); Squamous Epithelial 0-3 HPF (0-3); WBC/HPF 21-50 HPF (0-3)
[2024-11-08 12:31] LABS: Urine Culture Reflex Yes Yes
[2024-11-08] MEDS ORDERED: cefTRIAXone (ROCEPHIN) 1 GM VIAL ONE (12:48)
[2024-11-08] MEDS ORDERED: Sodium Chloride 0.9% 100 ML ONE (12:48)
[2024-11-08 13:16] LABS: Band 2 % (5-11); Eosinophils 5 % (0-10); Lymphocytes 35 % (21-51); MDiff Complete? YES; Monocytes 5 % (0-10); Myelocyte 1 % (0-0); Neutrophil 51 % (42-75); Platelet Adequacy Comment Appears Decreased
== END 2024-11-08 13:44 | disposition short-term general hospital (02) ==
LOC: MADERS 11:26
DX: R60.0 Localized edema (principal); I12.9 Hypertensive chronic kidney disease with stage 1 through stage 4 chronic kidney disease, or unspecified chronic kidney disease; N18.9 Chronic kidney disease, unspecified; Z79.899 Other long term (current) drug therapy; F17.210 Nicotine dependence, cigarettes, uncomplicated
CPT/HCPCS: 71045; 80053; 81001; 83880; 84484; 85025; 85379; 87081; 87086; 87430; 93005; J0696; 96365

== ENCOUNTER 2025-06-01 14:35 | Emergency (ER) | payer OTHER ==
[2025-06-01 15:44] LABS: ALT (SGPT) 20 U/L (Less than 45); AST (SGOT) 62 U/L (11-34); Albumin 1.6 g/dL (3.1-4.5); Alkaline Phosphatase 166 U/L (40-110); Anion Gap 20 mmol/L (10-20); BUN (Urea Nitrogen) 69 mg/dL (8.4-25.7); Bilirubin, Total 0.9 mg/dL (0.3-1.2); Calc. Creatinine Clearance 0 mL/min (70-130); Calcium 8.0 mg/dL (7.8-10.44); Carbon Dioxide 11 mmol/L (23-31); Chloride 105 mmol/L (98-107); Globulin 6.3 g/dL (2.4-3.5); Glucose 105 mg/dL (80-115); Magnesium 2.0 mg/dL (1.6-2.6); Potassium 5.4 mmol/L (3.5-5.1); Sodium 131 mmol/L (136-145)
[2025-06-01 15:53] LABS: Bicarbonate (HCO3v) 14.2 mmol/L (22.0-28.0); CO2 Tension (PvCO2) 40.9 mmHg (42.0-51.0); Calcium, Ionized 1.22 mmol/L (1.15-1.33); Chloride 114 mmol/L (98-107); Hemoglobin - Calc 9.4 g/dL (14.0-18.0); Potassium 5.3 mmol/L (3.5-5.1); Sodium 133 mmol/L (138-145); T. Carbon Dioxide 15.4 mmol/L (22.0-28.0); vO2 Saturation-calc 98.8 % (60.0-85.0)
[2025-06-01 15:55] LABS: Troponin I 0.020 ng/mL (< 0.028)
[2025-06-01 16:00] LABS: Anisocytosis SLIGHT = 6-15 cells (100X) (0-5/hpf); Hematocrit 25.3 % (42.0-52.0); Hemoglobin 7.8 g/dL (14.0-18.0); MDiff Complete? YES; Mean Corpuscular Hemoglobin 31.1 pg (27.0-31.0); Mean Corpuscular Volume 100.3 fl (78.0-98.0); Platelet Adequacy Comment Appears Decreased; Platelet Count 92 10x3/uL (130-400); Red Blood Cell (RBC) Count 2.52 mill/uL (4.70-6.10); White Blood Cell (WBC) Count 25.1 10x3/uL (4.8-10.8)
[2025-06-01] MEDS ORDERED: Sodium Bicarb 50 MEQ/50 ML Abboject 8.4% SYRINGE ONE (17:24)
[2025-06-01] MEDS ORDERED: Calcium Gluc 4.6 MEQ/10 ML (100 MG/ML) ONE (17:25)
[2025-06-01 21:04] LABS: Anion Gap 20 mmol/L (10-20); BUN (Urea Nitrogen) 69 mg/dL (8.4-25.7); Calc. Creatinine Clearance 0 mL/min (70-130); Calcium 8.5 mg/dL (7.8-10.44); Carbon Dioxide 12 mmol/L (23-31); Chloride 107 mmol/L (98-107); Glucose 80 mg/dL (80-115); Potassium 5.4 mmol/L (3.5-5.1); Sodium 134 mmol/L (136-145)
[2025-06-01 21:06] LABS: Bicarbonate (HCO3v) 14.9 mmol/L (22.0-28.0); CO2 Tension (PvCO2) 31.8 mmHg (42.0-51.0); Calcium, Ionized 1.18 mmol/L (1.15-1.33); Chloride 111 mmol/L (98-107); Hemoglobin - Calc 8.4 g/dL (14.0-18.0); Potassium 5.4 mmol/L (3.5-5.1); Sodium 132 mmol/L (138-145); T. Carbon Dioxide 15.9 mmol/L (22.0-28.0); vO2 Saturation-calc 98.3 % (60.0-85.0)
== END 2025-06-01 22:11 | disposition short-term general hospital (02) ==
LOC: MADERS 14:35
DX: I12.9 Hypertensive chronic kidney disease with stage 1 through stage 4 chronic kidney disease, or unspecified chronic kidney disease (principal); N18.9 Chronic kidney disease, unspecified; N17.9 Acute kidney failure, unspecified; D64.9 Anemia, unspecified; E87.5 Hyperkalemia; E87.20 Acidosis, unspecified; F17.210 Nicotine dependence, cigarettes, uncomplicated; Z79.899 Other long term (current) drug therapy
CPT/HCPCS: 71045; 80048; 80053; 82330; 82435 ×2; 82803; 83735; 83880; 84132 ×2; 84295 ×2; 84484; 85014 ×2; 85025; 87081; 87428; 87430; 93005; J0612; J7030; 36415; 96365; 96375